=== PATIENT | female | born 1945 | race Caucasian/White ===

== ENCOUNTER 2016-11-27 12:03 | Inpatient (IN) | payer OTHER, MEDICARE ==
[~2016-11-27] VITALS: Ht 162.6 cm; Wt 68.0 kg
--- NOTE | ~2016-11-27 | H ---
[facility] [place] [address] HISTORY AND PHYSICAL Name: ZAID ALEXANDRA Oren Room #: 410-P [facility] M.R.#: [id number] Admission: 11/27/16 Attend Phys: Zhao Dill MD Discharge: 12/04/16 Date of : 49 Report #: [id number] THIS REPORT FOR: //name// CC: Zhao Dill DATE OF SERVICE: 11/27/2016 CHIEF COMPLAINT: Nausea and vomiting. HISTORY OF PRESENT ILLNESS: The patient is a 71-year-old female with prior brain injury and some mild dementia who presents with nausea and vomiting. She states she has been unable to get out of a chair without having nausea, vomiting for the last couple of days. She states she just feels weak and miserable. PAST MEDICAL HISTORY: Significant for prior brain aneurysm with a bleed prior breast cancer, hypertension, diabetes mellitus, prior laparoscopic cholecystectomy. MEDICATIONS: Include metformin XR 500 mg a day, bupropion 450 mg a day, glimepiride 2 mg a day, 30 mg a day, fenofibrate 160 mg a day, ranitidine 150 mg b.i.d., Desyrel 50 mg at bedtime, citalopram 20 mg 2 tablets at bedtime, lisinopril/HCTZ 20/12.5 daily. ALLERGIES: ASPIRIN. SOCIAL HISTORY: Nonsmoker. No recreational drugs. She is living independently, but she does struggle very severely with independence. REVIEW OF SYSTEMS: CONSTITUTIONAL: Positive for fever and malaise. HEENT: No headaches or visual changes. CHEST: No chest pain, tightness in chest, short of breath, cough or sputum production. GASTROINTESTINAL: Positive for nausea, vomiting and diarrhea. GENITOURINARY: Incontinence, urgency. EXTREMITIES: No swelling or pain. SKIN: No rashes or wounds. NEUROLOGIC: No new numbness or weakness. PHYSICAL EXAMINATION: VITAL SIGNS: Blood pressure 150/60, pulse is 94, respiratory rate is 14, she is afebrile in the ER. GENERAL: She is frail and elderly appearing. HEENT: Her mucous membranes are dry. NECK: Supple, without adenopathy, thyromegaly or bruits. CHEST: Clear to auscultation. [address] [address] HISTORY AND PHYSICAL Name: ZAID ALEXANDRA Room #: [facility].#: [id number] Admission: 11/27/16 Attend Phys: Zhao Dill MD Discharge: 12/04/16 Date of : 49 Report #: [id number] CARDIOVASCULAR: Regular, without murmur. ABDOMEN: Soft but diffusely tender. Bowel sounds are present. EXTREMITIES: Show no edema. Pulses are intact. SKIN: Intact. NEUROLOGIC: Grossly intact. LABORATORY DATA: Sodium 138, potassium 3.4, chloride 101, bicarb 27, BUN 21, creatinine 1.0, glucose 252, calcium 8.9, AST 21, ALT 26, total protein 7.4. WBC is 10.0, hemoglobin 14.4, hematocrit 43.1, platelet count 257, 88 segs, 1 band, 6 lymphs. Urinalysis shows specific gravity 1.025, positive for nitrite, 0-5 whites, 10-30 bacteria. ASSESSMENT AND PLAN: 1. Urinary tract infection. 2. Intractable nausea and vomiting. We will admit, start on IV fluids, IV antibiotics. We will give her Rocephin 1 g daily. She was given a dose in the ER. We will give her antiemetics for nausea. 3. For her prior head injury, resume her home medications. 4. Diabetes. Resume her glimepiride and hold on her metformin for now in light of her mild dehydration state. 5. Mild acute kidney injury. Continue with the IV fluids. <ELECTRONICALLY SIGNED> By: Zhao Dill MD 12/16/16 [id number] 1801 Zhao Dill MD /nt
[~2016-11-27 12:03] MED LIST: ACETAMINOPHEN-1 EAC1 PO; ADDERALL XR 3030 MG PO; AMARYL2 MG; AMARYL2 MG PO; AUGMENTIN 875875 MG PO; BUPROPION XL300 MG PO; CELEXA20 MG PO; ERYTHROMYCIN E3.5 G1 OPHTHALMIC; FENOFIBRATE160 MG PO; LISINOPRIL-HCT1 EAC1 PO; METFORMIN HCL500 MG PO; NORCO 5-325 TA1 EACH PO; ROBAXIN 750 MG750 M1 PO; TRAZODONE HCL50 MG PO; ZANTAC 150MG T150 MG PO
[2016-11-27 12:04] VITALS: BP 151/60
[2016-11-27 12:36] LABS: HEMATOCRIT 42.1 % (37.0-47.0); HEMOGLOBIN 14.4 gm/dL (12.0-15.0); MCH 31.8 pg (26.0-34.0); MCHC 34.1 g/dL (28.0-37.0); MCV 93.2 fL (80.0-100.0); PLATELET COUNT 257 thou/uL (150-400); RBC 4.51 mil/uL (4.20-5.00); RDW 12.6 % (10.5-14.5)
[2016-11-27 12:45] LABS: CALCIUM 8.9 mg/dL (8.5-10.1); POTASSIUM 3.4 mmol/L (3.5-5.1)
[2016-11-27 12:47] LABS: MANUAL DIFF YES
[2016-11-27 12:50] LABS: ALBUMIN 3.5 g/dL (3.4-5.0); TOTAL BILIRUBIN 0.5 mg/dL (<0.1-1.0); TOTAL PROTEIN 7.4 g/dL (6.4-8.2)
[2016-11-27 13:14] LABS: ABSOLUTE NEUTROPHILS 8.9 thou/uL (1.4-8.2); TOTAL CELL COUNT 100
[2016-11-27 14:19] LABS: URINE BILIRUBIN NEGATIVE (Negative); URINE BLOOD NEGATIVE (Negative); URINE COLOR YELLOW; URINE GLUCOSE-RANDOM* TRACE (Negative); URINE KETONES NEGATIVE (Negative); URINE NITRITE POSITIVE (Negative); URINE PROTEIN (DIPSTICK) TRACE (Negative); URINE SPECIFIC GRAVITY 1.025 (1.003-1.035); URINE UROBILINOGEN 0.2 E.U./dl (0.2-1.0)
[2016-11-27 14:30] LABS: CASTS None Seen /LPF (None Seen); CRYSTALS None Seen /LPF (None Seen); SQUAMOUS 0-3 Few /LPF (0-3); URINE RBC None Seen /HPF (0-2); URINE WBC 0-5 Rare /HPF (0-5)
[2016-11-27] MEDS ORDERED: GLUCOPHAGE XR500 MG PO (14:34)
[2016-11-27 15:58] VITALS: BP 185/78
[2016-11-27 19:35] VITALS: BP 144/85
[2016-11-28 04:30] VITALS: BP 149/64
[2016-11-28 08:00] VITALS: BP 149/72
[2016-11-28 09:15] LABS: CALCIUM 8.2 mg/dL (8.5-10.1); CREATININE 0.8 mg/dL (0.6-1.3); POTASSIUM 3.3 mmol/L (3.5-5.1)
[2016-11-28 16:40] VITALS: BP 151/52
[2016-11-28 20:15] VITALS: BP 187/76
[2016-11-29 04:57] VITALS: BP 147/62
[2016-11-29 08:19] VITALS: BP 118/61
[2016-11-29 15:18] VITALS: BP 179/42
[2016-11-29 20:00] VITALS: BP 167/64
[2016-11-30] VITALS: BP 173/58
[2016-11-30 04:00] VITALS: BP 187/72
[2016-11-30 08:31] VITALS: BP 163/74
[2016-11-30 13:40] LABS: CREATININE 0.6 mg/dL (0.6-1.3)
[2016-11-30 16:54] VITALS: BP 151/60
[2016-12-01 08:00] VITALS: BP 135/53
[2016-12-01 12:24] LABS: URINE BILIRUBIN NEGATIVE (Negative); URINE BLOOD NEGATIVE (Negative); URINE COLOR YELLOW; URINE GLUCOSE-RANDOM* NEGATIVE (Negative); URINE KETONES NEGATIVE (Negative); URINE LEUKOCYTES-REFLEX NEGATIVE (Negative); URINE PROTEIN (DIPSTICK) NEGATIVE (Negative); URINE UROBILINOGEN 0.2 E.U./dl (0.2-1.0)
[2016-12-01 16:00] VITALS: BP 159/76
[2016-12-01 19:36] VITALS: BP 158/60
[2016-12-02 05:14] LABS: HEMATOCRIT 36.7 % (37.0-47.0); HEMOGLOBIN 12.5 gm/dL (12.0-15.0); MCH 31.6 pg (26.0-34.0); MCHC 34.1 g/dL (28.0-37.0); MCV 92.5 fL (80.0-100.0); RBC 3.97 mil/uL (4.20-5.00); RDW 12.6 % (10.5-14.5); WBC 3.9 thou/uL (4.0-11.0)
[2016-12-02 05:23] LABS: CALCIUM 8.7 mg/dL (8.5-10.1); CREATININE 0.7 mg/dL (0.6-1.3); POTASSIUM 3.8 mmol/L (3.5-5.1)
[2016-12-02 05:53] VITALS: BP 163/64
[2016-12-02 08:00] VITALS: BP 142/61; BP 155/81
[2016-12-02 16:58] VITALS: BP 140/70
[2016-12-02 20:15] VITALS: BP 152/76
[2016-12-02 23:30] VITALS: BP 149/62
[2016-12-03 04:42] VITALS: BP 121/59
[2016-12-03 06:57] LABS: HEMATOCRIT 38.9 % (37.0-47.0); HEMOGLOBIN 13.2 gm/dL (12.0-15.0); MCH 31.2 pg (26.0-34.0); MCV 91.8 fL (80.0-100.0); RBC 4.23 mil/uL (4.20-5.00); RDW 12.4 % (10.5-14.5); WBC 4.1 thou/uL (4.0-11.0)
[2016-12-03 08:00] VITALS: BP 130/76
[2016-12-03 16:00] VITALS: BP 145/66
[2016-12-03 20:44] VITALS: BP 166/99
[2016-12-04 04:05] VITALS: BP 156/67
[2016-12-04 08:19] VITALS: BP 142/63
[2016-12-04] MEDS ORDERED: FLAGYL500 MG PO (12:57)
[2016-12-04] MEDS ORDERED: ADDERALL XR 3030 MG PO (13:00)
[2016-12-04 17:07] VITALS: BP 142/63
[2016-12-04 18:25] VITALS: BP 142/63
== END 2016-12-04 18:26 | disposition home or self-care (01) | DRG 689 ==
LOC: ER 12:03 → EROBS 14:43 → 4N 14:43
PROVIDERS: Family Medicine; Nurse Practitioner Family
DX: N39.0 Urinary tract infection, site not specified (principal); E43 Unspecified severe protein-calorie malnutrition; N17.9 Acute kidney failure, unspecified; R19.7 Diarrhea, unspecified; B96.20 Unspecified Escherichia coli [E. coli] as the cause of diseases classified elsewhere; E87.6 Hypokalemia; K21.9 Gastro-esophageal reflux disease without esophagitis; I10 Essential (primary) hypertension; F32.9 Major depressive disorder, single episode, unspecified; E11.9 Type 2 diabetes mellitus without complications; Z87.828 Personal history of other (healed) physical injury and trauma; Z86.73 Personal history of transient ischemic attack (TIA), and cerebral infarction without residual deficits; Z90.49 Acquired absence of other specified parts of digestive tract; Z90.11 Acquired absence of right breast and nipple; Z88.6 Allergy status to analgesic agent
CPT/HCPCS: 10091

== ENCOUNTER 2016-12-12 07:00 | Emergency (ER) | payer OTHER, MEDICARE ==
[~2016-12-12] VITALS: Ht 162.6 cm; Wt 74.4 kg
[~2016-12-12 07:00] MED LIST changes: +FLAGYL500 MG PO; +GLUCOPHAGE XR500 MG PO
[2016-12-12 07:20] LABS: HEMATOCRIT 35.9 % (37.0-47.0); HEMOGLOBIN 11.9 gm/dL (12.0-15.0); MCH 31.6 pg (26.0-34.0); MCHC 33.2 g/dL (28.0-37.0); MCV 95.3 fL (80.0-100.0); PLATELET COUNT 255 thou/uL (150-400); RBC 3.77 mil/uL (4.20-5.00); RDW 12.9 % (10.5-14.5); WBC 7.3 thou/uL (4.0-11.0)
[2016-12-12 07:22] LABS: MANUAL DIFF YES
[2016-12-12 07:28] LABS: ANION GAP 8 mmol/L (7-16); BUN 14 mg/dL (7-18); CALCIUM 8.2 mg/dL (8.5-10.1); CHLORIDE 108 mmol/L (98-107); CO2 25 mmol/L (21-32); CREATININE 0.9 mg/dL (0.6-1.0); GLUCOSE 181 mg/dL (74-106); POTASSIUM 3.7 mmol/L (3.5-5.1); SODIUM 141 mmol/L (136-145)
[2016-12-12 07:33] LABS: ALKALINE PHOSPHATASE 48 U/L (46-116); DIRECT BILIRUBIN < 0.1 mg/dL (<0.1-0.3); SGOT 29 U/L (15-37); SGPT 30 U/L (30-65); TOTAL BILIRUBIN 0.3 mg/dL (<0.1-1.0); TOTAL PROTEIN 6.1 g/dL (6.4-8.2)
[2016-12-12] MEDS ORDERED: PHENERGAN 25 MG25 M1 PO (07:40)
[2016-12-12] MEDS ORDERED: PROMS25 WY RECTAL (07:40)
[2016-12-12 07:46] LABS: ABSOLUTE NEUTROPHILS 6.2 thou/uL (1.4-8.2); ANISOCYTOSIS SLIGHT; TOTAL CELL COUNT 100
== END 2016-12-12 09:56 | disposition home or self-care (01) ==
LOC: ER 07:00
PROVIDERS: Emergency Medicine
DX: R11.2 Nausea with vomiting, unspecified (principal); R19.7 Diarrhea, unspecified; Z90.10 Acquired absence of unspecified breast and nipple; F32.9 Major depressive disorder, single episode, unspecified; Z90.49 Acquired absence of other specified parts of digestive tract; I10 Essential (primary) hypertension; E11.9 Type 2 diabetes mellitus without complications; Z85.828 Personal history of other malignant neoplasm of skin; Z98.890 Other specified postprocedural states; Z88.6 Allergy status to analgesic agent

== ENCOUNTER → 2019-08-14 | Outpatient (CLI) | payer OTHER ==
[~2019-08-14] MED LIST changes: +PHENERGAN 25 MG25 M1 PO; +PROMS25 WY RECTAL
== END ==
LOC: BC 12:56
DX: Z12.31 Encounter for screening mammogram for malignant neoplasm of breast (principal)